=== PATIENT | female | born 1955 | race Caucasian/White ===

== ENCOUNTER 2017-05-19 16:43 | Emergency (ER) | payer BC ==
[~2017-05-19] VITALS: Ht 165.1 cm; Wt 62.0 kg
[~2017-05-19 16:43] MED LIST: ANTIDEPRESSANT; GUAI100S6 PO; Z.0.NO CURRENT MEDS
[2017-05-19 16:48] VITALS: BP 117/82; PULSE 117; RESP 16; TEMP 98; O2SAT 98
[2017-05-19] MEDS ORDERED: NITR1CAP36 PO (17:10)
[2017-05-19] MEDS ORDERED: VENL37.595 PO (17:10)
[2017-05-19] MEDS ORDERED: SODIUM CHLOR 0.9% 1000 ML INJ 1,000 ML IV ONE (17:15)
[2017-05-19] MEDS ORDERED: SODIUM CHLORIDE 0.9% FLUSH 10 ML FLUSH IV FLUSH PRN (17:15)
--- NOTE | 2017-05-19 17:23 | PD ---
HPI Chief Complaint: Abdominal Pain Time Seen by Provider: 17:04 Travel History International Travel<30 days: No Contact w/Intl Traveler<30days: No Traveled to known affect area: No History of Present Illness HPI The patient was seen and examined in the presence of the nurse. This patient complains of abdominal pain. Location is epigastrium. Duration 2 days. Severity is moderate. No vomiting or fever. He has history of alcoholic pancreatitis. This feels similar. She drinks 3 glasses of wine daily. She used to be a heavy drinker but has cut back a lot. No abdominal surgeries. No lower quadrant pains. She does have frequent heartburn. She takes Rolaids for that. She was drinking earlier today. No alleviating factors. Symptoms likely exacerbated by alcohol PFSH Past Medical History Hx Anticoagulant Therapy: No Arthritis: No Asthma: No Autoimmune Disease: No Blood Disorders: No Anxiety: Yes Depression: Yes Heart Rhythm Problems: No Cancer: No Cardiovascular Problems: Yes (HTN, CHOL) High Cholesterol: No Chest Pain: No Congestive Heart Failure: No COPD: No Cerebrovascular Accident: No Diabetes: No Diminished Hearing: No Endocrine: No Gastrointestinal Disorders: Yes (PANCREATITIS 12/2007.) GERD: No Glaucoma: No Genitourinary: No Headaches: No Hepatitis: No Hiatal Hernia: No Hypertension: Yes Immune Disorder: No Kidney Stones: No Musculoskeletal: No Neurologic: No Psychiatric: Yes Reproductive: No Respiratory: Yes Migraines: No Myocardial Infarction: No Pancreatitis: Yes Renal Failure: No Seizures: No Sickle Cell Disease: No Sleep Apnea: No Thyroid Disease: No Ulcer: No Tetanus Vaccination: > 5 Years Influenza Vaccination: Yes Menopausal: Yes Past Surgical History Abdominal Surgery: No AICD: No Appendectomy: No Arteriovenous Shunt: No Cardiac Surgery: No Cholecystectomy: No Ear Surgery: No Endocrine Surgery: No Eye Surgery: No Genitourinary Surgery: No Gynecologic Surgery: No Insulin Pump: No Joint Replacement: No Oral Surgery: No Pacemaker: No Thoracic Surgery: No Tonsillectomy: Yes Social History Alcohol Use: Yes (3 glasses daily ) Tobacco Use: Yes (E cig ) Substance Use: No Allergies-Medications (Allergen,Severity, Reaction): Coded Allergies: No Known Allergies (Verified Allergy, Mild, 05/19/17) Reported Meds & Prescriptions Reported Meds & Active Scripts Active Reported Venlafaxine ER 24 HR (Venlafaxine HCl) 37.5 Mg Cap 37.5 Mg PO BID Nitrofurantoin Macrocrystal 100 Mg Cap 100 Mg PO BID Review of Systems General / Constitutional: No: Fever Eyes: No: Visual changes HENT: No: Headaches Cardiovascular: No: Chest Pain or Discomfort Respiratory: No: Shortness of Breath Gastrointestinal: Positive: Abdominal Pain Genitourinary: No: Dysuria Musculoskeletal: No: Pain Skin: No Rash Neurologic: No: Weakness Psychiatric: Positive: Substance Abuse, No: Depression Endocrine: No: Polydipsia Hematologic/Lymphatic: No: Easy Bruising Physical Exam Narrative GENERAL: Well-nourished, well-developed patient with epigastric pain . SKIN: Focused skin assessment reveals no rash and nodules. Skin is Warm and dry. HEAD: Atraumatic. Normocephalic. EYES: Pupils equal and round. No scleral icterus. No injection or drainage. ENT: No nasal bleeding or discharge. Mucous membranes pink and moist. NECK: Trachea midline. No JVD. CARDIOVASCULAR: Regular rate and rhythm. No murmur appreciated. RESPIRATORY: No accessory muscle use. Clear to auscultation. Breath sounds equal bilaterally. GASTROINTESTINAL: Abdomen soft, minimal epigastric tenderness without rebound or guarding , nondistended. Hepatic and splenic margins not palpable. MUSCULOSKELETAL: No obvious deformities. No clubbing. No cyanosis. No edema. NEUROLOGICAL: Awake and alert. No obvious cranial nerve deficits. Motor grossly within normal limits. Normal speech. PSYCHIATRIC: Appropriate mood and affect; insight and judgment normal. Data Data Last Documented VS Vital Signs Date Time Temp Pulse Resp B/P (MAP) Pulse Ox O2 Delivery O2 Flow Rate FiO2 05/19/17 16:48 98.0 117 16 117/82 (94) 98 Orders Orders Complete Blood Count With Diff (05/19/17 17:08) Comprehensive Metabolic Panel (05/19/17 17:08) Lipase (05/19/17 17:08) Iv Access Insert/Monitor (05/19/17 17:08) NPO (05/19/17 17:08) Sodium Chloride 0.9% Flush (Ns Flush) (05/19/17 17:15) Sodium Chlor 0.9% 1000 Ml Inj (Ns 1000 M (05/19/17 17:15) Alcohol (Ethanol) (05/19/17 17:08) Labs Laboratory Tests Test 12/20/17 17:25 White Blood Count 9.9 TH/MM3 Red Blood Count 3.35 MIL/MM3 Hemoglobin 9.4 GM/DL Hematocrit 30.6 % Mean Corpuscular Volume 91.5 FL Mean Corpuscular Hemoglobin 28.1 PG Mean Corpuscular Hemoglobin Concent 30.7 % Red Cell Distribution Width 19.3 % Platelet Count 547 TH/MM3 Mean Platelet Volume 6.7 FL Neutrophils (%) (Auto) 85.9 % Lymphocytes (%) (Auto) 4.0 % Monocytes (%) (Auto) 6.9 % Eosinophils (%) (Auto) 2.8 % Basophils (%) (Auto) 0.4 % Neutrophils # (Auto) 8.5 TH/MM3 Lymphocytes # (Auto) 0.4 TH/MM3 Monocytes # (Auto) 0.7 TH/MM3 Eosinophils # (Auto) 0.3 TH/MM3 Basophils # (Auto) 0.0 TH/MM3 CBC Comment DIFF FINAL Differential Comment Blood Urea Nitrogen 21 MG/DL Creatinine 0.98 MG/DL Random Glucose 125 MG/DL Total Protein 7.9 GM/DL Albumin 3.2 GM/DL Calcium Level 9.0 MG/DL Alkaline Phosphatase 117 U/L Aspartate Amino Transf (AST/SGOT) 27 U/L Alanine Aminotransferase (ALT/SGPT) 47 U/L Total Bilirubin 0.3 MG/DL Sodium Level 129 MEQ/L Potassium Level 4.0 MEQ/L Chloride Level 96 MEQ/L Carbon Dioxide Level 24.5 MEQ/L Anion Gap 9 MEQ/L Estimat Glomerular Filtration Rate 58 ML/MIN Lipase 121 U/L Ethyl Alcohol Level LESS THAN 3 MG/DL MDM Medical Decision Making Medical Screen Exam Complete: Yes Emergency Medical Condition: Yes Medical Record Reviewed: Yes Differential Diagnosis Differential diagnosis includes pancreatitis, biliary colic, hepatitis, GERD, peptic ulcer disease. Narrative Course I have reviewed the patient's electronic medical record. Patient was seen for pancreatitis in 2007 IV placed CBC shows mild anemia with normal white cell count metabolic profile is normal other than hyponatremia 129 LFT's I reviewed and not significantly elevated lipase is normal Alcohol level is negative I gave her 1 L normal saline IV No evidence of actual active pancreatitis here. I think more likely she has gastric ulcer or peptic ulcer disease presentation She takes both aspirin and anti-inflammatories and alcohol and needs to cut all 3. She should take daily Prilosec and follow-up with her physician May require endoscopy in the near future but not emergently needed today Diagnosis Primary Impression: Epigastric pain Additional Instructions: The patient was advised to follow up with their physician and return if they worsen. Stop aspirin and anti-inflammatories and alcohol Take daily Prilosec which is [id number] Med/Other Pt SpecificInfo: Other Disposition: 01 DISCHARGE HOME Condition: Stable Vincent Rankin MD May 19, 2017 17:23
[2017-05-19 17:36] LABS: AUTOMATED NEUTROPHIL # 8.5 TH/MM3 (1.8-7.7); BASOPHIL % 0.4 % (0.0-2.0); EOSINOPHIL # 0.3 TH/MM3 (0-0.4); EOSINOPHIL % 2.8 % (0.0-4.0); HEMATOCRIT 30.6 % (35.0-46.0); HEMOGLOBIN 9.4 GM/DL (11.6-15.3); LYMPHOCYTE # 0.4 TH/MM3 (1.0-4.8); MEAN CELL VOLUME 91.5 FL (80.0-100.0); MEAN CORPUSCULAR HEMOGLOBIN 28.1 PG (27.0-34.0); MEAN CORPUSCULAR HGB CONC 30.7 % (32.0-36.0); MEAN PLATELET VOLUME 6.7 FL (7.0-11.0); MONO % 6.9 % (0.0-8.0); MONOCYTE # 0.7 TH/MM3 (0-0.9); NEUT % 85.9 % (16.0-70.0); PLATELET COUNT 547 TH/MM3 (150-450); RED BLOOD COUNT 3.35 MIL/MM3 (4.00-5.30); RED CELL DISTRIBUTION WIDTH 19.3 % (11.6-17.2); WHITE BLOOD COUNT 9.9 TH/MM3 (4.0-11.0)
[2017-05-19 17:58] LABS: CHLORIDE 96 MEQ/L (98-107); SODIUM (NA) 129 MEQ/L (136-145)
[2017-05-19 18:02] LABS: ALBUMIN 3.2 GM/DL (3.4-5.0); BICARBONATE 24.5 MEQ/L (21.0-32.0); GLUCOSE,RANDOM 125 MG/DL (74-106); LIPASE 121 U/L (73-393)
[2017-05-19 18:03] LABS: BLOOD UREA NITROGEN 21 MG/DL (7-18)
[2017-05-19 18:05] LABS: ALT (GPT) 47 U/L (10-53); AST (GOT) 27 U/L (15-37); CREATININE 0.98 MG/DL (0.50-1.00); GLOMERULAR FILTRATION RATE 58 ML/MIN (>89)
[2017-05-19 18:07] LABS: TOTAL BILIRUBIN ADULT 0.3 MG/DL (0.2-1.0); TOTAL PROTEIN 7.9 GM/DL (6.4-8.2)
[2017-05-19 18:08] LABS: ALKALINE PHOSPHATASE 117 U/L (45-117)
[2017-05-19 18:31] VITALS: BP 112/70
== END 2017-05-19 18:33 | disposition home or self-care (01) ==
LOC: PHED 16:43
DX: R10.13 Epigastric pain (principal); I10 Essential (primary) hypertension; E78.00 Pure hypercholesterolemia, unspecified
CPT/HCPCS: 80053; 80307; 83690; 85025; 99283; J7030